=== PATIENT | male | born 1975 | race African-American/Black ===

== ENCOUNTER 2019-05-03 20:40 | Emergency (ER) | payer MEDICAID ==
[~2019-05-03] VITALS: Ht 182.9 cm; Wt 92.0 kg
[2019-05-03] MEDS ORDERED: SODIUM CHLORIDE 0.9% 1,000 ML IV ONE (23:57)
[2019-05-04 00:30] LABS: BASOPHILS % 0.9 % (0.0-2.0); EOSINOPHILS % 1.7 % (0.0-5.0); HEMOGLOBIN. 13.6 g/dL (14.0-18.0); LYMPHOCYTES % 37.5 % (20.0-50.0); MEAN CORPUSCULAR VOLUME 100.4 fL (80.0-94.0); MEAN PLATELET VOLUME 9.2 fl (7.4-10.4); MONOCYTES % 8.2 % (2.0-8.0); NEUTROPHILS % 51.7 % (40.0-76.0); PLATELET 127 x1000/uL (130-400); RED BLOOD CELL COUNT 3.88 mill/uL (4.7-6.1); RED CELL DISTRIBUTION WIDTH 14.1 % (11.6-14.6)
[2019-05-04 00:35] LABS: CHLORIDE 105 mEq/L (98-107)
[2019-05-04 00:40] LABS: ETHANOL BLOOD 275 mg/dL
[2019-05-04 01:32] LABS: CLARITY URINE CLEAR (CLEAR); COLOR URINE YELLOW (YELLOW); KETONES URINE NEGATIVE (NEGATIVE); LEUKOCYTE ESTERASE URINE NEGATIVE (NEGATIVE); NITRITE URINE NEGATIVE (NEGATIVE); OCCULT BLOOD URINE NEGATIVE (NEGATIVE); PROTEIN URINE NEGATIVE (NEGATIVE); SPECIFIC GRAVITY URINE 1.014 (1.005-1.030); UROBILINOGEN URINE 0.2 E.U./dL (0.2-1.0)
[2019-05-04 01:47] LABS: *COCAINE SCREEN URINE NEGATIVE (NEGATIVE); METHADONE URINE SCREEN NEGATIVE (NEGATIVE)
[2019-05-04 01:48] LABS: *AMPHETAMINES SCREEN URINE NEGATIVE (NEGATIVE); *BARBITURATES SCREEN URINE NEGATIVE (NEGATIVE); *BENZODIAZEPINES SCREEN URINE NEGATIVE (NEGATIVE); CANNABINOID URINE SCREEN NEGATIVE (NEGATIVE); OPIATES URINE SCREEN NEGATIVE (NEGATIVE); PHENCYCLIDINE URINE SCREEN NEGATIVE (NEGATIVE)
[2019-05-04 04:20] VITALS: BP 109/67
== END 2019-05-04 07:26 | disposition home or self-care (01) ==
LOC: ER 20:40
DX: F10.229 Alcohol dependence with intoxication, unspecified (principal); Y90.8 Blood alcohol level of 240 mg/100 ml or more
CPT/HCPCS: 36415; 80053; 80305; 80320; 81003; 83690; 85025; 99283; J7030; Z7610; G0480

== ENCOUNTER 2021-07-22 00:52 | Emergency (ER) | payer MEDICAID, OTHER | END 2021-07-22 02:50 | disposition left against medical advice (07) | LOC: ER 00:52 | DX: Z53.21 Procedure and treatment not carried out due to patient leaving prior to being seen by health care provider (principal) ==

== ENCOUNTER 2022-05-22 09:50 | Inpatient (IN) | payer MEDICAID, OTHER ==
[~2022-05-22] VITALS: Ht 182.9 cm; Wt 90.4 kg
[~2022-05-22 09:50] MED LIST: ACET-2708 MT; ALLO100T MT; ALLO100T PO; AMLO5TAB88 PO; AMOX-424 MT; ASPI-1160 PO; CLON0.1T14 PO; COLC0.6C3 MT; COR6 MT; COR6 PO; DILT240C91 MT; DILT240C95 PO; FURO-151 MT; FURO-152 MT; HYDR100T26 PO; IBUP-2028 MT; IBUP-2030 MT; LOSA25TA3 MT; LOSA25TA3 PO; LOSA50TA3 PO; METF500T PO; NAPR-681 PO; NICO-681 TD; POTA-204 PO; PRED10TA23 MT; THIA100T72 PO
[2022-05-22] MEDS ORDERED: NITROGLYCERIN 0.4MG TABLET SL SL NR (10:45)
[2022-05-22] MEDS ORDERED: AMLODIPINE 5MG TABLET PO NR (10:45)
[2022-05-22] MEDS ORDERED: LORAZEPAM 2MG/ML CPJ IV NR (10:45)
[2022-05-22 11:25] LABS: CLARITY URINE CLEAR (CLEAR); COLOR URINE YELLOW (YELLOW); KETONES URINE NEGATIVE (NEGATIVE); LEUKOCYTE ESTERASE URINE NEGATIVE (NEGATIVE); NITRITE URINE NEGATIVE (NEGATIVE); OCCULT BLOOD URINE NEGATIVE (NEGATIVE); PH URINE 5.5 (4.5-8.0); PROTEIN URINE NEGATIVE (NEGATIVE)
[2022-05-22] MEDS ORDERED: ASPIRIN 325MG EC TABLET PO NR (12:00)
[2022-05-22 12:53] LABS: *AMPHETAMINES SCREEN URINE NEGATIVE (NEGATIVE); *BARBITURATES SCREEN URINE NEGATIVE (NEGATIVE); *BENZODIAZEPINES SCREEN URINE PRESUMTIVE POSITIVE (NEGATIVE); *COCAINE SCREEN URINE NEGATIVE (NEGATIVE); CANNABINOID URINE SCREEN NEGATIVE (NEGATIVE); METHADONE URINE SCREEN NEGATIVE (NEGATIVE); OPIATES URINE SCREEN NEGATIVE (NEGATIVE); PHENCYCLIDINE URINE SCREEN NEGATIVE (NEGATIVE)
[2022-05-22] MEDS ORDERED: MORPHINE SULFATE 4 MG/ML CPJ (NOT FOR IM USE) IV NR (13:15)
[2022-05-22 16:46] LABS: CHLORIDE 101 mEq/L (98-107)
[2022-05-22 16:56] LABS: ETHANOL BLOOD 34 mg/dL
[2022-05-22] MEDS ORDERED: FUROSEMIDE 40MG/4ML VIAL IV SCH (17:15)
[2022-05-22] MEDS ORDERED: NITROGLYCERIN OINT 1GM/INCH UDPKT TD SCH (17:15)
[2022-05-22 18:39] LABS: BASOPHILS % 1.4 % (0.0-2.0); EOSINOPHILS % 0.5 % (0.0-5.0); HEMATOCRIT. 42.8 % (42.0-52.0); MEAN CORPUSCULAR HEMOGLOBIN 36.1 pg (28.0-32.0); MEAN CORPUSCULAR VOLUME 102.8 fL (80.0-94.0); MEAN PLATELET VOLUME 10.5 fl (7.4-10.4); MONOCYTES % 9.9 % (2.0-8.0); NEUTROPHILS % 72.2 % (40.0-76.0); PLATELET 163 x1000/uL (130-400); RED BLOOD CELL COUNT 4.17 mill/uL (4.7-6.1); RED CELL DISTRIBUTION WIDTH 15.7 % (11.6-14.6)
[2022-05-22] MEDS ORDERED: DIPHENHYDRAMINE 50MG CAPSULE PO ONE (20:15)
[2022-05-22 23:00] VITALS: BP 191/116
[2022-05-22 23:30] VITALS: BP 165/103
[2022-05-23] MEDS ORDERED: POTASSIUM CHLORIDE 20MEQ TABLET SR PO NR
[2022-05-23] MEDS: CLONIDINE 0.1MG TABLET PO PRN ×2 (00:22→08:45)
[2022-05-23 04:00] VITALS: BP 169/119
[2022-05-23 08:00] VITALS: BP 178/115
[2022-05-23] MEDS: LORAZEPAM 2MG/ML CPJ IV PRN ×3 (08:45→22:44)
[2022-05-23] MEDS ORDERED: ACETAMINOPHEN 325MG TABLET PO PRN (11:15)
[2022-05-23] MEDS ORDERED: TRAMADOL 50MG TABLET PO PRN (11:45)
[2022-05-23 12:00] VITALS: BP 176/114
[2022-05-23] MEDS ORDERED: NALOXONE HCL 0.4MG/ML VIAL IV PRN (12:00)
[2022-05-23] MEDS: DILTIAZEM HCL 60MG TABLET PO SCH ×2 (12:02→17:34)
[2022-05-23] MEDS ORDERED: FOLIC ACID 1 MG, THIAMINE HCL 100 MG, MVI, ADULT NO.1 10 ML in DEXTROSE 5% WATER 1,000 ML IV ONE ×4 (13:00)
[2022-05-23 16:00] VITALS: BP 154/95
[2022-05-23 17:29] LABS: T4 FREE 1.18 ng/dL (0.76-1.46)
[2022-05-23 20:00] VITALS: BP 143/77
[2022-05-23] MEDS: FENOFIBRATE NANOCRYSTALLIZED 48MG TABLET PO SCH (21:00)
[2022-05-23] MEDS: ATORVASTATIN CALCIUM 40MG TABLET PO SCH (21:00)
[2022-05-23] MEDS ORDERED: ATORVASTATIN CALCIUM 40MG TABLET PO SCH (21:00)
[2022-05-24] VITALS: BP 148/88
[2022-05-24] MEDS: LORAZEPAM 2MG/ML CPJ IV PRN ×4 (03:15→20:12)
[2022-05-24 04:00] VITALS: BP 150/87
[2022-05-24 06:42] LABS: BASOPHILS % 0.6 % (0.0-2.0); EOSINOPHILS % 1.6 % (0.0-5.0); HEMATOCRIT. 40.5 % (42.0-52.0); HEMOGLOBIN. 14.1 g/dL (14.0-18.0); LYMPHOCYTES % 28.9 % (20.0-50.0); MEAN CORPUSCULAR HEMOGLOBIN 35.2 pg (28.0-32.0); MEAN CORPUSCULAR VOLUME 101.3 fL (80.0-94.0); MEAN PLATELET VOLUME 9.6 fl (7.4-10.4); MONOCYTES % 6.8 % (2.0-8.0); NEUTROPHILS % 62.1 % (40.0-76.0); PLATELET 110 x1000/uL (130-400); RED CELL DISTRIBUTION WIDTH 14.8 % (11.6-14.6)
[2022-05-24] MEDS: PANTOPRAZOLE 40MG DR TABLET PO SCH ×2 (06:46→09:58)
[2022-05-24 07:11] LABS: CHLORIDE 98 mEq/L (98-107)
[2022-05-24 07:22] LABS: HDL CHOLESTEROL 17 mg/dL (40-59); LDL CHOLESTEROL 59 mg/dL (5-100)
[2022-05-24] MEDS ORDERED: POTASSIUM CHLORIDE 20MEQ TABLET SR PO NR (08:45)
[2022-05-24] MEDS ORDERED: IOHEXOL-300 100 ML BOTTLE ONE (09:16)
[2022-05-24 09:30] VITALS: BP_SYST 153; BP_SYST 160; BP_DIAS 100; BP_DIAS 88
[2022-05-24] MEDS: FISH OIL/OMEGA-3 FATTY ACIDS 1000MG CAPSULE PO SCH (09:57)
[2022-05-24] MEDS: FENOFIBRATE NANOCRYSTALLIZED 48MG TABLET PO SCH (09:57)
[2022-05-24] MEDS: DILTIAZEM HCL 60MG TABLET PO SCH (09:58)
[2022-05-24] MEDS: LOSARTAN POTASSIUM 100 MG TABLET PO SCH (11:37)
[2022-05-24] MEDS: ASPIRIN 81MG TABLET PO SCH (11:37)
[2022-05-24 12:00] VITALS: BP 147/89
[2022-05-24] MEDS ORDERED: AMLO5TAB88 PO (15:07)
[2022-05-24] MEDS ORDERED: LIP40 PO (15:07)
[2022-05-24] MEDS ORDERED: ASPI-1160 PO (15:07)
[2022-05-24] MEDS ORDERED: LOSA100T3 PO (15:07)
[2022-05-24] MEDS ORDERED: PANT40TA51 PO (15:07)
[2022-05-24 16:00] VITALS: BP 149/88
[2022-05-24 20:00] VITALS: BP 141/82
[2022-05-24] MEDS: ATORVASTATIN CALCIUM 40MG TABLET PO SCH (20:11)
[2022-05-24] MEDS: AMLODIPINE 5MG TABLET PO SCH (20:11)
[2022-05-25] VITALS: BP 138/66
[2022-05-25] MEDS: LORAZEPAM 2MG/ML CPJ IV PRN ×2 (01:16→06:02)
[2022-05-25 04:00] VITALS: BP 149/80
[2022-05-25 05:48] LABS: BASOPHILS % 0.6 % (0.0-2.0); EOSINOPHILS % 1.8 % (0.0-5.0); HEMATOCRIT. 39.9 % (42.0-52.0); HEMOGLOBIN. 13.8 g/dL (14.0-18.0); LYMPHOCYTES % 23.4 % (20.0-50.0); MEAN CORPUSCULAR HEMOGLOBIN 35.4 pg (28.0-32.0); MEAN CORPUSCULAR VOLUME 102.2 fL (80.0-94.0); MEAN PLATELET VOLUME 9.9 fl (7.4-10.4); MONOCYTES % 7.1 % (2.0-8.0); NEUTROPHILS % 67.1 % (40.0-76.0); PLATELET 107 x1000/uL (130-400); RED BLOOD CELL COUNT 3.91 mill/uL (4.7-6.1); RED CELL DISTRIBUTION WIDTH 14.6 % (11.6-14.6)
[2022-05-25 08:00] VITALS: BP 158/94
[2022-05-25 08:19] LABS: CHLORIDE 104 mEq/L (98-107)
[2022-05-25] MEDS: FISH OIL/OMEGA-3 FATTY ACIDS 1000MG CAPSULE PO SCH (08:49)
[2022-05-25] MEDS: ASPIRIN 81MG TABLET PO SCH (08:49)
[2022-05-25] MEDS: LOSARTAN POTASSIUM 100 MG TABLET PO SCH (08:49)
[2022-05-25] MEDS: AMLODIPINE 5MG TABLET PO SCH (08:49)
[2022-05-25] MEDS: FENOFIBRATE NANOCRYSTALLIZED 48MG TABLET PO SCH (08:49)
[2022-05-25] MEDS ORDERED: POTASSIUM CHLORIDE 20MEQ TABLET SR PO SCH (09:00)
[2022-05-25 12:00] VITALS: BP 131/75
[2022-05-25 13:47] VITALS: BP 131/75
[2022-05-25] MEDS ORDERED: CHLORDIAZEPOXIDE 25MG CAPSULE PO SCH (21:00)
== END 2022-05-25 15:29 | disposition home or self-care (01) | DRG 199 ==
LOC: ER 10:45 → 8WST 18:37 → MERGE 18:37 → EDBEDREQTM 18:44 → EDBEDREQ 18:44 → ENRESERV 22:00
PROVIDERS: ADMIT Internal Medicine; ATTEND Internal Medicine
DX: I16.1 Hypertensive emergency (principal); I50.43 Acute on chronic combined systolic (congestive) and diastolic (congestive) heart failure; E44.0 Moderate protein-calorie malnutrition; M94.0 Chondrocostal junction syndrome [Tietze]; I11.0 Hypertensive heart disease with heart failure; F33.1 Major depressive disorder, recurrent, moderate; E05.90 Thyrotoxicosis, unspecified without thyrotoxic crisis or storm; Z20.822 Contact with and (suspected) exposure to COVID-19; E11.65 Type 2 diabetes mellitus with hyperglycemia; E78.1 Pure hyperglyceridemia; E87.6 Hypokalemia; K80.20 Calculus of gallbladder without cholecystitis without obstruction; R74.01 Elevation of levels of liver transaminase levels; F41.9 Anxiety disorder, unspecified; F10.20 Alcohol dependence, uncomplicated; F17.210 Nicotine dependence, cigarettes, uncomplicated; Y90.1 Blood alcohol level of 20-39 mg/100 ml; Z59.00 Homelessness unspecified; Z91.14 Patient's other noncompliance with medication regimen; Z79.899 Other long term (current) drug therapy; Z68.27 Body mass index [BMI] 27.0-27.9, adult; Z56.0 Unemployment, unspecified; Z63.8 Other specified problems related to primary support group; Z82.49 Family history of ischemic heart disease and other diseases of the circulatory system
CPT/HCPCS: 36415; 71045; 74177; 76700; 80048; 80053; 80061; 80305; 80320; 81003; 83036; 83605; 83880; 84439; 84443; 84484; 85025; 87426; 93005; 93306; 93970; 99285; J1940; J2060; J2270; J3411; J3490; J7070; Q0163; Q9967; G0480

== ENCOUNTER 2022-06-26 17:39 | Emergency (ER) | payer MEDICAID, OTHER ==
[~2022-06-26] VITALS: Ht 177.8 cm; Wt 100.0 kg
[~2022-06-26 17:39] MED LIST changes: +LIP40 PO; +LOSA100T3 PO; +PANT40TA51 PO
[2022-06-26 18:46] LABS: BASOPHILS % 0.5 % (0.0-2.0); EOSINOPHILS % 1.5 % (0.0-5.0); HEMATOCRIT. 35.5 % (42.0-52.0); HEMOGLOBIN. 12.2 g/dL (14.0-18.0); LYMPHOCYTES % 22.8 % (20.0-50.0); MEAN CORPUSCULAR HEMOGLOBIN 35.5 pg (28.0-32.0); MEAN CORPUSCULAR VOLUME 103.6 fL (80.0-94.0); MEAN PLATELET VOLUME 7.8 fl (7.4-10.4); MONOCYTES % 5.9 % (2.0-8.0); NEUTROPHILS % 69.3 % (40.0-76.0); PLATELET 365 x1000/uL (130-400); RED BLOOD CELL COUNT 3.43 mill/uL (4.7-6.1); RED CELL DISTRIBUTION WIDTH 15.2 % (11.6-14.6)
[2022-06-26 18:50] LABS: CLARITY URINE CLEAR (CLEAR); COLOR URINE YELLOW (YELLOW); KETONES URINE NEGATIVE (NEGATIVE); LEUKOCYTE ESTERASE URINE NEGATIVE (NEGATIVE); NITRITE URINE NEGATIVE (NEGATIVE); OCCULT BLOOD URINE NEGATIVE (NEGATIVE); PH URINE 5.5 (4.5-8.0); PROTEIN URINE TRACE (NEGATIVE); SPECIFIC GRAVITY URINE 1.012 (1.005-1.030); UROBILINOGEN URINE 0.2 E.U./dL (0.2-1.0)
[2022-06-26 18:54] LABS: CHLORIDE 101 mEq/L (98-107)
[2022-06-26 19:02] LABS: *AMPHETAMINES SCREEN URINE NEGATIVE (NEGATIVE); *BARBITURATES SCREEN URINE NEGATIVE (NEGATIVE); *BENZODIAZEPINES SCREEN URINE PRESUMTIVE POSITIVE (NEGATIVE); *COCAINE SCREEN URINE NEGATIVE (NEGATIVE); CANNABINOID URINE SCREEN NEGATIVE (NEGATIVE); METHADONE URINE SCREEN NEGATIVE (NEGATIVE); OPIATES URINE SCREEN NEGATIVE (NEGATIVE); PHENCYCLIDINE URINE SCREEN NEGATIVE (NEGATIVE)
[2022-06-26 19:02] LABS: ETHANOL BLOOD 189 mg/dL
[2022-06-26 19:35] VITALS: BP 151/88
[2022-06-26] MEDS ORDERED: ACETAMINOPHEN 500MG TABLET PO ONE (20:15)
[2022-06-26 20:50] LABS: CHLORIDE 102 mEq/L (98-107)
[2022-06-26] MEDS ORDERED: IBUPROFEN 600MG TABLET PO ONE (21:00)
== END 2022-06-26 21:29 | disposition home or self-care (01) ==
LOC: ER 17:39
DX: K85.90 Acute pancreatitis without necrosis or infection, unspecified (principal); Y90.6 Blood alcohol level of 120-199 mg/100 ml; I11.0 Hypertensive heart disease with heart failure; I50.9 Heart failure, unspecified; F10.229 Alcohol dependence with intoxication, unspecified; Z79.899 Other long term (current) drug therapy
CPT/HCPCS: 36415; 80048; 80053; 80305; 80320; 81003; 85025; 99283; G0480

== ENCOUNTER 2022-07-09 20:08 | Emergency (ER) | payer MEDICAID, OTHER ==
[~2022-07-09] VITALS: Ht 193 cm; Wt 95.0 kg
[2022-07-09 21:24] LABS: BASOPHILS % 0.1 % (0.0-2.0); EOSINOPHILS % 1.3 % (0.0-5.0); HEMATOCRIT. 36.5 % (42.0-52.0); HEMOGLOBIN. 12.7 g/dL (14.0-18.0); LYMPHOCYTES % 30.1 % (20.0-50.0); MEAN CORPUSCULAR HEMOGLOBIN 35.3 pg (28.0-32.0); MEAN CORPUSCULAR VOLUME 101.5 fL (80.0-94.0); MEAN PLATELET VOLUME 8.5 fl (7.4-10.4); MONOCYTES % 7.9 % (2.0-8.0); NEUTROPHILS % 60.6 % (40.0-76.0); PLATELET 245 x1000/uL (130-400); RED BLOOD CELL COUNT 3.59 mill/uL (4.7-6.1); RED CELL DISTRIBUTION WIDTH 15.5 % (11.6-14.6)
[2022-07-09 21:41] LABS: CHLORIDE 107 mEq/L (98-107)
[2022-07-09] MEDS ORDERED: ONDANSETRON 4MG ODT PO ONE (23:00)
[2022-07-09] MEDS ORDERED: FAMOTIDINE 20MG TABLET PO ONE (23:00)
[2022-07-09 23:44] LABS: ETHANOL BLOOD 211 mg/dL
[2022-07-09] MEDS ORDERED: POTASSIUM CHLORIDE 20MEQ TABLET SR PO ONE (23:45)
[2022-07-10] MEDS ORDERED: FAMOTIDINE 20MG TABLET PO NR (01:30)
[2022-07-10] MEDS ORDERED: ONDANSETRON 4MG ODT PO NR (01:30)
[2022-07-10] MEDS ORDERED: POTASSIUM CHLORIDE 20MEQ TABLET SR PO NR (01:30)
[2022-07-10] MEDS ORDERED: ASPIRIN 81MG TABLET PO ONE (03:45)
[2022-07-10 05:56] LABS: *AMPHETAMINES SCREEN URINE NEGATIVE (NEGATIVE); *BARBITURATES SCREEN URINE NEGATIVE (NEGATIVE); *BENZODIAZEPINES SCREEN URINE PRESUMTIVE POSITIVE (NEGATIVE); *COCAINE SCREEN URINE NEGATIVE (NEGATIVE); CANNABINOID URINE SCREEN NEGATIVE (NEGATIVE); METHADONE URINE SCREEN NEGATIVE (NEGATIVE); OPIATES URINE SCREEN NEGATIVE (NEGATIVE); PHENCYCLIDINE URINE SCREEN NEGATIVE (NEGATIVE)
[2022-07-10 08:00] VITALS: BP 156/106
== END 2022-07-10 11:31 | disposition left against medical advice (07) ==
LOC: ER 20:08 → EDBEDREQ 07-10 05:09 → EDBEDREQTM 07-10 05:09 → ER 07-10 11:31 → CANBEDREQ 07-12 01:51
DX: I21.4 Non-ST elevation (NSTEMI) myocardial infarction (principal); I11.0 Hypertensive heart disease with heart failure; I50.9 Heart failure, unspecified; F10.229 Alcohol dependence with intoxication, unspecified; Y90.7 Blood alcohol level of 200-239 mg/100 ml; Z79.899 Other long term (current) drug therapy
CPT/HCPCS: 36415; 71045; 80053; 80305; 80320; 83690; 84484; 85025; 93005; 99285; Q0162; Z7610; G0480

== ENCOUNTER 2022-08-02 22:40 | Emergency (ER) | payer MEDICAID ==
[~2022-08-02] VITALS: Ht 185.4 cm; Wt 90.0 kg
[2022-08-02] MEDS ORDERED: NITROGLYCERIN 0.4MG TABLET SL SL PRN (23:15)
[2022-08-02] MEDS ORDERED: ASPIRIN 81MG TABLET PO ONE (23:15)
[2022-08-03 00:02] LABS: BASOPHILS % 3.8 % (0.0-2.0); EOSINOPHILS % 5.4 % (0.0-5.0); HEMATOCRIT. 39.7 % (42.0-52.0); HEMOGLOBIN. 13.6 g/dL (14.0-18.0); LYMPHOCYTES % 33.1 % (20.0-50.0); MEAN CORPUSCULAR HEMOGLOBIN 35.6 pg (28.0-32.0); MEAN CORPUSCULAR VOLUME 103.5 fL (80.0-94.0); MEAN PLATELET VOLUME 8.2 fl (7.4-10.4); MONOCYTES % 14.7 % (2.0-8.0); PLATELET 310 x1000/uL (130-400); RED BLOOD CELL COUNT 3.83 mill/uL (4.7-6.1); RED CELL DISTRIBUTION WIDTH 17.1 % (11.6-14.6)
[2022-08-03 00:04] LABS: CHLORIDE 103 mEq/L (98-107)
[2022-08-03 00:19] LABS: ETHANOL BLOOD 221 mg/dL
[2022-08-03 01:27] LABS: PARTIAL THROMBOPLASTIN TIME 34.2 sec (23.4-31.0); PROTHROMBIN TIME 10.4 sec (9.6-11.0)
[2022-08-03] MEDS: ASPIRIN 81MG TABLET PO NR ×2 (01:56→02:04)
[2022-08-03] MEDS ORDERED: THIAMINE HCL 100 MG, FOLIC ACID 1 MG, MVI, ADULT NO.1 10 ML in DEXT 5%/0.9% NACL 1,000 ML IV NR ×4 (02:30)
[2022-08-03] MEDS ORDERED: DOCUSATE SODIUM 100MG CAPSULE PO PRN (02:30)
[2022-08-03] MEDS ORDERED: LORAZEPAM 2MG/ML CPJ IV PRN (02:30)
[2022-08-03] MEDS ORDERED: IPRATROPIUM/ALBUTEROL 0.5-3(2.5)MG/3ML NEB HHN PRN ×2 (02:30)
[2022-08-03] MEDS ORDERED: CLONIDINE 0.1MG TABLET PO PRN (02:30)
[2022-08-03] MEDS ORDERED: ONDANSETRON HCL 4MG/2ML INJ IV PRN (02:30)
[2022-08-03] MEDS ORDERED: ACETAMINOPHEN 325MG TABLET PO PRN ×2 (02:30)
[2022-08-03] MEDS ORDERED: NITROGLYCERIN 0.4MG TABLET SL SL PRN (02:45)
[2022-08-03] MEDS ORDERED: FAMOTIDINE 20MG TABLET PO SCH (03:00)
[2022-08-03 03:57] LABS: PHOSPHORUS 3.7 mg/dL (2.5-4.9)
[2022-08-03] MEDS ORDERED: IOHEXOL-350 100 ML BOTTLE ONE (04:14)
[2022-08-03] MEDS ORDERED: ENOXAPARIN 40MG/0.4ML SYR SUBCUT SCH (09:00)
[2022-08-03] MEDS ORDERED: AMLODIPINE 10MG TABLET PO SCH (09:00)
[2022-08-03 12:58] VITALS: BP 153/95
[2022-08-03] MEDS ORDERED: APIXABAN 5 MG TABLET PO SCH (17:00)
[2022-08-04] MEDS ORDERED: THIAMINE HCL 100MG TABLET PO SCH (09:00)
[2022-08-06] MEDS ORDERED: LISI20TA31 MT (10:39)
[2022-08-06] MEDS ORDERED: AMLO10TA80 PO (10:39)
== END 2022-08-03 13:34 | disposition left against medical advice (07) ==
LOC: ER 23:13 → EDBEDREQ 08-03 02:03 → EDBEDREQTM 08-03 02:03 → ER 08-03 13:34 → CANBEDREQ 08-05 07:24
DX: R07.89 Other chest pain (principal); F10.229 Alcohol dependence with intoxication, unspecified; F41.9 Anxiety disorder, unspecified; N17.9 Acute kidney failure, unspecified; D61.818 Other pancytopenia; I11.0 Hypertensive heart disease with heart failure; I50.9 Heart failure, unspecified; F19.10 Other psychoactive substance abuse, uncomplicated; Y90.7 Blood alcohol level of 200-239 mg/100 ml; E78.00 Pure hypercholesterolemia, unspecified; Z59.00 Homelessness unspecified
CPT/HCPCS: 36415; 71045; 71275; 80053; 80320; 83036; 83690; 83735; 83880; 84100; 84484; 85025; 85379; 85610; 85730; 87040; 93005; 93970; 96365; 96366; 96372; 96375; 99285; J1650; J2060; J3411; J3490; J7042; Q9967; Z7610; G0480

== ENCOUNTER 2022-08-18 09:03 | Emergency (ER) | payer MEDICAID ==
[~2022-08-18] VITALS: Ht 180.3 cm; Wt 114.0 kg
[~2022-08-18 09:03] MED LIST changes: +AMLO10TA80 PO; +LISI20TA31 MT
[2022-08-18] MEDS ORDERED: KETOROLAC 60MG/2ML VIAL IM STA (11:51)
[2022-08-18] MEDS ORDERED: COLCHICINE 0.6MG TABLET PO ONE (12:00)
[2022-08-18] MEDS ORDERED: PREDNISONE 20MG TABLET PO ONE (12:00)
[2022-08-18] MEDS ORDERED: P50 MT (13:53)
[2022-08-18 14:11] VITALS: BP 125/75
== END 2022-08-18 14:11 | disposition home or self-care (01) ==
LOC: ER 09:03
DX: M10.9 Gout, unspecified (principal); I11.0 Hypertensive heart disease with heart failure; I50.9 Heart failure, unspecified; Z79.899 Other long term (current) drug therapy; Z98.890 Other specified postprocedural states
CPT/HCPCS: 96372; 99283; J1885; J7512

== ENCOUNTER 2022-08-29 19:23 | Emergency (ER) | payer MEDICAID ==
[~2022-08-29] VITALS: Ht 182.9 cm; Wt 102.0 kg
[~2022-08-29 19:23] MED LIST changes: -LOSA100T3 PO; +LOSA100T4 PO; +P50 MT
[2022-08-29] MEDS ORDERED: IBUPROFEN 600MG TABLET PO STA (20:01)
[2022-08-29 21:08] LABS: EOSINOPHILS % 2.4 % (0.0-5.0); HEMATOCRIT. 37.2 % (42.0-52.0); HEMOGLOBIN. 12.6 g/dL (14.0-18.0); LYMPHOCYTES % 37.3 % (20.0-50.0); MEAN CORPUSCULAR HEMOGLOBIN 34.5 pg (28.0-32.0); MEAN CORPUSCULAR VOLUME 101.5 fL (80.0-94.0); MEAN PLATELET VOLUME 7.7 fl (7.4-10.4); MONOCYTES % 5.7 % (2.0-8.0); NEUTROPHILS % 53.6 % (40.0-76.0); PLATELET 286 x1000/uL (130-400); RED BLOOD CELL COUNT 3.66 mill/uL (4.7-6.1); RED CELL DISTRIBUTION WIDTH 16.5 % (11.6-14.6)
[2022-08-29 21:20] LABS: CHLORIDE 107 mEq/L (98-107)
[2022-08-29 21:30] LABS: ETHANOL BLOOD 254 mg/dL
[2022-08-30] MEDS ORDERED: DICYCLOMINE 10 MG/5 ML ORAL SYR PO STA (05:27)
[2022-08-30] MEDS ORDERED: MAGNESIUM/ALUMINUM HYDROXIDE/SIMETHICONE 30ML UDC PO STA (05:27)
[2022-08-30] MEDS ORDERED: FAMOTIDINE 20MG TABLET PO ONE (05:30)
[2022-08-30 06:00] VITALS: BP 135/71
== END 2022-08-30 06:01 | disposition home or self-care (01) ==
LOC: ER 19:34
DX: F10.129 Alcohol abuse with intoxication, unspecified (principal); I11.0 Hypertensive heart disease with heart failure; I50.9 Heart failure, unspecified; F17.200 Nicotine dependence, unspecified, uncomplicated; Z98.890 Other specified postprocedural states; Z79.899 Other long term (current) drug therapy; Y90.8 Blood alcohol level of 240 mg/100 ml or more
CPT/HCPCS: 36415; 71045; 80053; 80320; 83880; 84484; 85025; 99284; G0480

== ENCOUNTER 2022-11-02 07:33 | Emergency (ER) | payer OTHER ==
[~2022-11-02] VITALS: Ht 185.4 cm; Wt 93.0 kg
[~2022-11-02 07:33] MED LIST changes: -ACET-2708 MT; -ALLO100T PO; +AMI2 MT; -AMLO10TA80 PO; -AMLO5TAB88 PO; -AMOX-424 MT; +CEPH500C2 MT; -CLON0.1T14 PO; -COR6 MT; -COR6 PO; -DILT240C91 MT; -DILT240C95 PO; -FURO-151 MT; -FURO-152 MT; -HYDR100T26 PO; -IBUP-2028 MT; +IBUP-2029 MT; -IBUP-2030 MT; -LISI20TA31 MT; -LOSA100T4 PO; -LOSA25TA3 MT; -LOSA25TA3 PO; -LOSA50TA3 PO; -METF500T PO; +METO100T16 PO; -NAPR-681 PO; -NICO-681 TD; -P50 MT; -PRED10TA23 MT
[2022-11-02 07:42] VITALS: BP 143/83
[2022-12-03] MEDS ORDERED: LIPA1CAP28 PO (13:48)
[2022-12-03] MEDS ORDERED: HYDR100T26 PO (13:48)
[2022-12-03] MEDS ORDERED: AMLO10TA80 PO (13:48)
[2022-12-08] MEDS ORDERED: ALLO100T MT (13:31)
[2022-12-08] MEDS ORDERED: COLC0.6C3 MT (13:31)
== END 2022-11-02 11:49 | disposition home or self-care (01) ==
LOC: ER 07:33
DX: Z76.89 Persons encountering health services in other specified circumstances (principal); I48.91 Unspecified atrial fibrillation; I11.0 Hypertensive heart disease with heart failure; I50.9 Heart failure, unspecified; Z59.00 Homelessness unspecified
CPT/HCPCS: 99283

== ENCOUNTER 2022-12-09 21:02 | Emergency (ER) | payer MEDICAID ==
[~2022-12-09] VITALS: Ht 185.4 cm; Wt 95.0 kg
[~2022-12-09 21:02] MED LIST changes: +AMLO10TA80 PO; +HYDR100T26 PO; +LIPA1CAP28 PO
[2022-12-09 21:26] VITALS: O2SAT 99
[2022-12-09 23:02] LABS: HEMATOCRIT. 39.1 % (42.0-52.0); HEMOGLOBIN. 13.3 g/dL (14.0-18.0); MEAN CORPUSCULAR VOLUME 99.8 fL (80.0-94.0); MEAN PLATELET VOLUME 8.8 fl (7.4-10.4); PLATELET 308 x1000/uL (130-400); RED BLOOD CELL COUNT 3.92 mill/uL (4.7-6.1); RED CELL DISTRIBUTION WIDTH 15.8 % (11.6-14.6)
[2022-12-09 23:06] LABS: CHLORIDE 99 mEq/L (98-107)
[2022-12-09 23:28] LABS: PLATELET ESTIMATE NORMAL
[2022-12-09 23:50] LABS: CLARITY URINE CLEAR (CLEAR); COLOR URINE YELLOW (YELLOW); KETONES URINE NEGATIVE (NEGATIVE); LEUKOCYTE ESTERASE URINE NEGATIVE (NEGATIVE); NITRITE URINE NEGATIVE (NEGATIVE); OCCULT BLOOD URINE NEGATIVE (NEGATIVE); PROTEIN URINE TRACE (NEGATIVE); SPECIFIC GRAVITY URINE 1.022 (1.005-1.030)
[2022-12-10] MEDS ORDERED: DICYCLOMINE 10 MG/5 ML ORAL SYR PO STA (00:14)
[2022-12-10] MEDS ORDERED: MAGNESIUM/ALUMINUM HYDROXIDE/SIMETHICONE 30ML UDC PO STA (00:14)
[2022-12-10 00:21] VITALS: TEMP 99.1
[2022-12-10 01:00] LABS: ETHANOL BLOOD < 10 mg/dL (-10)
[2022-12-10 01:33] LABS: *AMPHETAMINES SCREEN URINE NEGATIVE (NEGATIVE); *BARBITURATES SCREEN URINE NEGATIVE (NEGATIVE); *BENZODIAZEPINES SCREEN URINE NEGATIVE (NEGATIVE); *COCAINE SCREEN URINE NEGATIVE (NEGATIVE); CANNABINOID URINE SCREEN NEGATIVE (NEGATIVE); METHADONE URINE SCREEN NEGATIVE (NEGATIVE); OPIATES URINE SCREEN PRESUMTIVE POSITIVE (NEGATIVE); PHENCYCLIDINE URINE SCREEN NEGATIVE (NEGATIVE)
[2022-12-10 02:09] VITALS: BP 129/76; PULSE 98; RESP 18
[2022-12-10] MEDS ORDERED: LORAZEPAM 0.5MG TABLET PO ONE (02:15)
== END 2022-12-10 02:19 | disposition home or self-care (01) ==
LOC: ER 21:39
DX: K86.9 Disease of pancreas, unspecified (principal); I50.9 Heart failure, unspecified; Z79.82 Long term (current) use of aspirin; Z79.899 Other long term (current) drug therapy
CPT/HCPCS: 80053; 80305; 81003; 83690; 85025; 36415; 93005; 99284; 80320; 84484; Z7610; G0480

== ENCOUNTER 2022-12-20 19:01 | Emergency (ER) | payer MEDICAID, OTHER ==
[~2022-12-20] VITALS: Ht 185.4 cm; Wt 100.0 kg
[2022-12-20 19:08] VITALS: TEMP 98.6; O2SAT 97
[2022-12-20 19:55] LABS: BASOPHILS % 0.9 % (0.0-2.0); EOSINOPHILS % 0.6 % (0.0-5.0); HEMATOCRIT. 33.7 % (42.0-52.0); HEMOGLOBIN. 11.8 g/dL (14.0-18.0); LYMPHOCYTES % 28.8 % (20.0-50.0); MEAN CORPUSCULAR HEMOGLOBIN 34.8 pg (28.0-32.0); MEAN CORPUSCULAR VOLUME 99.6 fL (80.0-94.0); MEAN PLATELET VOLUME 7.9 fl (7.4-10.4); MONOCYTES % 7.5 % (2.0-8.0); NEUTROPHILS % 62.2 % (40.0-76.0); PLATELET 269 x1000/uL (130-400); RED BLOOD CELL COUNT 3.38 mill/uL (4.7-6.1); RED CELL DISTRIBUTION WIDTH 16.1 % (11.6-14.6)
[2022-12-20] MEDS ORDERED: ONDANSETRON HCL 4MG/2ML INJ IV ONE (20:00)
[2022-12-20] MEDS ORDERED: SODIUM CHLORIDE 0.9% 1,000 ML IV ONE (20:00)
[2022-12-20] MEDS ORDERED: FAMOTIDINE 20MG/2ML VIAL IV ONE (20:00)
[2022-12-20 20:03] LABS: CHLORIDE 108 mEq/L (98-107)
[2022-12-20] MEDS ORDERED: MORPHINE SULFATE 2 MG/ML CPJ (NOT FOR IM USE) IV ONE (20:15)
[2022-12-20 20:19] LABS: ETHANOL BLOOD 337 mg/dL (-10)
[2022-12-20] MEDS ORDERED: MORPHINE SULFATE 2 MG/ML CPJ (NOT FOR IM USE) IV NR (20:30)
[2022-12-20] MEDS ORDERED: FAMOTIDINE 20MG/2ML VIAL IV NR (20:30)
[2022-12-20] MEDS ORDERED: ONDANSETRON HCL 4MG/2ML INJ IV NR (20:30)
[2022-12-20] MEDS ORDERED: MAGNESIUM OXIDE 400MG TABLET PO SCH (20:30)
[2022-12-20] MEDS ORDERED: POTASSIUM CHLORIDE 20MEQ TABLET SR PO ONE (20:30)
[2022-12-20] MEDS ORDERED: KCL 20MEQ/100ML PREMIX 100 ML IV ONE (20:30)
[2022-12-21 03:16] VITALS: BP 153/102; PULSE 100; RESP 16
[2022-12-21] MEDS ORDERED: HYDR100T26 PO (13:02)
[2022-12-21] MEDS ORDERED: NIFE-32 MT (13:02)
[2022-12-23] MEDS ORDERED: LOSA100T33 PO (13:24)
[2022-12-23] MEDS ORDERED: METO100T16 MT (13:24)
== END 2022-12-21 03:20 | disposition home or self-care (01) ==
LOC: ER 19:01
DX: F10.129 Alcohol abuse with intoxication, unspecified (principal); Y90.8 Blood alcohol level of 240 mg/100 ml or more; F15.10 Other stimulant abuse, uncomplicated; I50.9 Heart failure, unspecified
CPT/HCPCS: 80053; 80320; 83690; 85025; 84484; 36415; 93005; 96361; 96374; 96375; 99284; J3490; J2405; J3480; J2270; J7030; G0480

== ENCOUNTER 2022-12-25 15:51 | Emergency (ER) | payer MEDICAID, OTHER ==
[~2022-12-25] VITALS: Ht 188 cm; Wt 100.0 kg
[~2022-12-25 15:51] MED LIST changes: -AMLO10TA80 PO; -CEPH500C2 MT; +LOSA100T33 PO; +METO100T16 MT; +NIFE-32 MT
[2022-12-25 15:54] VITALS: BP 91/57; PULSE 81; RESP 16; TEMP 97.9; O2SAT 95
[2022-12-25] MEDS ORDERED: MAGNESIUM/ALUMINUM HYDROXIDE/SIMETHICONE 30ML UDC PO STA (17:08)
[2022-12-25] MEDS ORDERED: FAMOTIDINE 20MG TABLET PO ONE (17:15)
[2022-12-25] MEDS ORDERED: ASPIRIN 81MG TABLET PO ONE (17:15)
[2022-12-25 17:38] LABS: BASOPHILS % 0.7 % (0.0-2.0); EOSINOPHILS % 0.6 % (0.0-5.0); HEMATOCRIT. 37.7 % (42.0-52.0); LYMPHOCYTES % 13.2 % (20.0-50.0); MEAN CORPUSCULAR HEMOGLOBIN 34.3 pg (28.0-32.0); MEAN PLATELET VOLUME 8.5 fl (7.4-10.4); MONOCYTES % 11.1 % (2.0-8.0); NEUTROPHILS % 74.4 % (40.0-76.0); PLATELET 211 x1000/uL (130-400); RED BLOOD CELL COUNT 3.77 mill/uL (4.7-6.1); RED CELL DISTRIBUTION WIDTH 17.3 % (11.6-14.6)
[2022-12-25 17:53] LABS: CHLORIDE 107 mEq/L (98-107)
[2022-12-29] MEDS ORDERED: FOLI-43 MT (07:48)
== END 2022-12-25 18:27 | disposition left against medical advice (07) ==
LOC: ER 15:51
DX: R07.89 Other chest pain (principal); R11.2 Nausea with vomiting, unspecified; I11.0 Hypertensive heart disease with heart failure; I50.9 Heart failure, unspecified
CPT/HCPCS: 80053; 83880; 83690; 85025; 84484; 36415; 71045; 93005; 99285; Z7610

== ENCOUNTER 2023-01-01 20:25 | Inpatient (IN) | payer MEDICAID, OTHER ==
[~2023-01-01] VITALS: Ht 180.3 cm; Wt 105.0 kg
[~2023-01-01 20:25] MED LIST changes: -COLC0.6C3 MT; +FOLI-43 MT
[2023-01-01 20:27] VITALS: BP 169/71; PULSE 122; RESP 20; TEMP 98.1; O2SAT 99
[2023-01-01] MEDS ORDERED: SODIUM CHLORIDE 0.9% 1,000 ML IV ONE (21:15)
[2023-01-01 21:37] LABS: BASOPHILS % 0.6 % (0.0-2.0); EOSINOPHILS % 0.5 % (0.0-5.0); HEMOGLOBIN. 12.1 g/dL (14.0-18.0); MEAN CORPUSCULAR HEMOGLOBIN 33.8 pg (28.0-32.0); MEAN CORPUSCULAR VOLUME 100.7 fL (80.0-94.0); MEAN PLATELET VOLUME 8.5 fl (7.4-10.4); MONOCYTES % 12.3 % (2.0-8.0); NEUTROPHILS % 68.6 % (40.0-76.0); PLATELET 291 x1000/uL (130-400); RED BLOOD CELL COUNT 3.58 mill/uL (4.7-6.1); RED CELL DISTRIBUTION WIDTH 17.7 % (11.6-14.6)
[2023-01-02] MEDS ORDERED: DEXT 5%/0.45% NACL 500ML 1,000 ML IV ONE (00:30)
[2023-01-02] MEDS ORDERED: IPRATROPIUM/ALBUTEROL 0.5-3(2.5)MG/3ML NEB HHN PRN (07:30)
[2023-01-02] MEDS ORDERED: LORAZEPAM 0.5MG TABLET PO PRN (07:30)
[2023-01-02] MEDS ORDERED: ACETAMINOPHEN 325MG TABLET PO PRN ×2 (07:30)
[2023-01-02] MEDS ORDERED: ONDANSETRON HCL 4MG/2ML INJ IV PRN (07:30)
[2023-01-02] MEDS ORDERED: CLONIDINE 0.1MG TABLET PO PRN (07:30)
[2023-01-02] MEDS ORDERED: HYDROCODONE/ACETAMINOPHEN 5/325MG TABLET PO PRN (07:30)
[2023-01-02] MEDS ORDERED: DOCUSATE SODIUM 100MG CAPSULE PO PRN (09:00)
== END 2023-01-02 09:53 | disposition home or self-care (01) | DRG 52 ==
LOC: ER 20:25 → MICUSO 01-02 00:51
PROVIDERS: ADMIT Internal Medicine; ATTEND Internal Medicine
DX: G92.8 Other toxic encephalopathy (principal); N17.9 Acute kidney failure, unspecified; I50.9 Heart failure, unspecified; I11.0 Hypertensive heart disease with heart failure; I48.0 Paroxysmal atrial fibrillation; D53.9 Nutritional anemia, unspecified; F10.10 Alcohol abuse, uncomplicated; E78.5 Hyperlipidemia, unspecified; Z59.00 Homelessness unspecified
CPT/HCPCS: 36415; 80048; 80320; 85025; 93005; 99285; J7030; G0480

== ENCOUNTER 2023-09-12 14:35 | Emergency (ER) | payer MEDICAID, OTHER ==
[~2023-09-12] VITALS: Ht 188 cm; Wt 100.0 kg
[~2023-09-12 14:35] MED LIST changes: -AMI2 MT; +AMI2 PO; +AMLO10TA80 MT; +AMLO5TAB88 MT; -ASPI-1160 PO; +COLC0.6C3 PO; +HYDR-4001 PO; -HYDR100T26 PO; -IBUP-2029 MT; -LIP40 PO; +LORA-250 PO; -METO100T16 MT; -NIFE-32 MT; +PANT40TA51 MT; -PANT40TA51 PO; -POTA-204 PO; -THIA100T72 PO
[2023-09-12 14:38] VITALS: TEMP 98; O2SAT 100
[2023-09-12] MEDS: NALOXONE HCL 0.4MG/ML 1ML VIAL IV ONE (15:51)
[2023-09-12 15:57] LABS: DIFFERENTIAL COMMENT 0; EOSINOPHILS % 1.3 % (0.0-5.0); HEMATOCRIT. 34.8 % (42.0-52.0); HEMOGLOBIN. 11.8 g/dL (14.0-18.0); LYMPHOCYTES % 26.4 % (20.0-50.0); MEAN CORPUSCULAR HEMOGLOBIN 35.7 pg (28.0-32.0); MEAN CORPUSCULAR HGB CONC 33.9 g/dL (31.0-37.0); MEAN CORPUSCULAR VOLUME 105.4 fL (80.0-94.0); MEAN PLATELET VOLUME 8.4 fl (7.4-10.4); MONOCYTES % 14.5 % (2.0-8.0); NEUTROPHILS % 56.8 % (40.0-76.0); PLATELET 308 x1000/uL (130-400); RED CELL DISTRIBUTION WIDTH 14.9 % (11.6-14.6); WHITE BLOOD COUNT 4.9 x1000/uL (4.5-11.0)
[2023-09-12 16:06] LABS: INR 0.9
[2023-09-12 16:17] LABS: ALANINE AMINOTRANSFERASE 11 IU/L (10-49); ALBUMIN 4.2 g/dL (3.2-4.8); ASPARTATE AMINOTRANSFERASE 27 IU/L (<34); BILIRUBIN TOTAL 0.2 mg/dL (0.1-1.0); CALCIUM 8.3 mg/dL (8.7-10.4); CARBON DIOXIDE 18 mEq/L (21-32); CHLORIDE 107 mEq/L (98-107); CREATININE 2.9 mg/dL (0.6-1.3); ETHANOL BLOOD 293 mg/dL (<10); GLUCOSE 91 mg/dL (70-105); POTASSIUM 3.6 mEq/L (3.5-5.1); SODIUM 139 mEq/L (136-145); UREA NITROGEN BLOOD 31 mg/dL (9-23)
[2023-09-12] MEDS: PANTOPRAZOLE 40MG DR TABLET PO NR (18:21)
[2023-09-12] MEDS: MAGNESIUM/ALUMINUM HYDROXIDE/SIMETHICONE 30ML UDC PO NR (18:21)
[2023-09-12] MEDS: SODIUM CHLORIDE 0.9% 1,000 ML IV ONE (18:21)
[2023-09-13 00:28] VITALS: BP 138/86; PULSE 92; RESP 17
== END 2023-09-13 01:04 | disposition home or self-care (01) ==
LOC: ER 14:35
DX: F10.129 Alcohol abuse with intoxication, unspecified (principal); N17.9 Acute kidney failure, unspecified; I11.0 Hypertensive heart disease with heart failure; I50.9 Heart failure, unspecified; F12.90 Cannabis use, unspecified, uncomplicated; F14.90 Cocaine use, unspecified, uncomplicated; F15.90 Other stimulant use, unspecified, uncomplicated; Y90.9 Presence of alcohol in blood, level not specified
CPT/HCPCS: 80053; 80320; 85025; 85610; 36415; 70450; 96361; 96374; 99285; J2310; J7030; G0480

== ENCOUNTER 2023-09-17 17:42 | Emergency (ER) | payer MEDICAID, OTHER ==
[~2023-09-17] VITALS: Ht 182.9 cm; Wt 90.0 kg
[2023-09-17 18:23] VITALS: BP 136/114; PULSE 130; RESP 20; TEMP 98.5; O2SAT 100
[2023-09-17 19:09] LABS: BASOPHILS % 0.8 % (0.0-2.0); DIFFERENTIAL COMMENT 0; HEMATOCRIT. 36.7 % (42.0-52.0); LYMPHOCYTES % 16.5 % (20.0-50.0); MEAN CORPUSCULAR HEMOGLOBIN 35.9 pg (28.0-32.0); MEAN CORPUSCULAR HGB CONC 35.4 g/dL (31.0-37.0); MEAN CORPUSCULAR VOLUME 101.2 fL (80.0-94.0); MEAN PLATELET VOLUME 8.5 fl (7.4-10.4); MONOCYTES % 7.6 % (2.0-8.0); NEUTROPHILS % 74.1 % (40.0-76.0); PLATELET 285 x1000/uL (130-400); RED BLOOD CELL COUNT 3.63 mill/uL (4.7-6.1); RED CELL DISTRIBUTION WIDTH 14.1 % (11.6-14.6); WHITE BLOOD COUNT 6.8 x1000/uL (4.5-11.0)
[2023-09-17 19:21] LABS: ALANINE AMINOTRANSFERASE 17 IU/L (10-49); ALBUMIN 4.9 g/dL (3.2-4.8); ASPARTATE AMINOTRANSFERASE 32 IU/L (<34); BILIRUBIN TOTAL 0.3 mg/dL (0.1-1.0); CARBON DIOXIDE 24 mEq/L (21-32); CHLORIDE 98 mEq/L (98-107); ETHANOL BLOOD 231 mg/dL (<10); GLUCOSE 107 mg/dL (70-105); POTASSIUM 3.1 mEq/L (3.5-5.1); PROTEIN TOTAL 8.1 g/dL (6.0-8.3); SODIUM 137 mEq/L (136-145); TROPONIN I HIGH SENSITIVITY 5 ng/L (3.0-53); UREA NITROGEN BLOOD 20 mg/dL (9-23)
[2023-09-17 22:13] LABS: TROPONIN I HIGH SENSITIVITY 6 ng/L (3.0-53)
[2023-09-17] MEDS ORDERED: ESOM40CA MT (22:52)
== END 2023-09-17 23:17 | disposition home or self-care (01) ==
LOC: ER 17:42
DX: R07.89 Other chest pain (principal); F10.129 Alcohol abuse with intoxication, unspecified; I11.0 Hypertensive heart disease with heart failure; I50.9 Heart failure, unspecified; F14.10 Cocaine abuse, uncomplicated; F12.10 Cannabis abuse, uncomplicated; F15.10 Other stimulant abuse, uncomplicated; Z79.899 Other long term (current) drug therapy; Y90.7 Blood alcohol level of 200-239 mg/100 ml
CPT/HCPCS: 36415; 71045; 80053; 80320; 83880; 84484; 85025; 93005; 99285; G0480

== ENCOUNTER 2023-11-08 07:34 | Emergency (ER) | payer MEDICAID ==
[~2023-11-08] VITALS: Ht 185.4 cm; Wt 95.3 kg
[~2023-11-08 07:34] MED LIST changes: +ESOM40CA MT
[2023-11-08 07:41] VITALS: O2SAT 99
[2023-11-08] MEDS ORDERED: IBUP-2028 PO (08:00)
[2023-11-08] MEDS ORDERED: COLC0.6C3 PO (08:00)
[2023-11-08] MEDS ORDERED: T3 PO (08:00)
[2023-11-08] MEDS: COLCHICINE 0.6MG TABLET PO ONE (08:39)
[2023-11-08] MEDS: IBUPROFEN 800MG TABLET PO SCH (08:40)
[2023-11-08] MEDS: IBUPROFEN 800MG TABLET PO ONE (08:40)
[2023-11-08 08:42] VITALS: BP 168/99; PULSE 85; RESP 16; TEMP 98.2
== END 2023-11-08 08:43 | disposition home or self-care (01) ==
LOC: ER 07:34
DX: M10.9 Gout, unspecified (principal); I11.0 Hypertensive heart disease with heart failure; F14.90 Cocaine use, unspecified, uncomplicated; F12.90 Cannabis use, unspecified, uncomplicated; F15.90 Other stimulant use, unspecified, uncomplicated; F10.20 Alcohol dependence, uncomplicated; Y90.9 Presence of alcohol in blood, level not specified
CPT/HCPCS: 99283

== ENCOUNTER 2023-12-23 10:21 | Emergency (ER) | payer MEDICAID ==
[~2023-12-23] VITALS: Ht 185.4 cm; Wt 95.3 kg
[~2023-12-23 10:21] MED LIST changes: +IBUP-2028 PO; +T3 PO
[2023-12-23 10:29] VITALS: O2SAT 98
[2023-12-23] MEDS ORDERED: DEXAMETHASONE 4MG/ML 1ML VIAL IM ONE (11:00)
[2023-12-23] MEDS: DEXAMETHASONE 10 MG/ML VIAL IM NR (11:11)
[2023-12-23] MEDS: KETOROLAC 30MG/ML VIAL IM ONE (11:11)
[2023-12-23] MEDS ORDERED: COLC0.6C3 MT (11:21)
[2023-12-23] MEDS ORDERED: ALLO100T MT (11:21)
[2023-12-23] MEDS ORDERED: IBUP-2030 MT (11:21)
[2023-12-23] MEDS: COLCHICINE 0.6MG TABLET PO ONE (11:29)
[2023-12-23 11:52] VITALS: BP 162/98; PULSE 88; RESP 18; TEMP 98
== END 2023-12-23 11:54 | disposition home or self-care (01) ==
LOC: ER 10:21
DX: M10.9 Gout, unspecified (principal); I11.0 Hypertensive heart disease with heart failure; I50.9 Heart failure, unspecified; F14.10 Cocaine abuse, uncomplicated; F12.10 Cannabis abuse, uncomplicated; F15.10 Other stimulant abuse, uncomplicated; Z79.899 Other long term (current) drug therapy
CPT/HCPCS: 99284; 73110; 96372; J1100; J1885

== ENCOUNTER 2024-02-09 11:38 | Emergency (ER) | payer MEDICAID ==
[~2024-02-09] VITALS: Ht 182.9 cm; Wt 95.0 kg
[~2024-02-09 11:38] MED LIST changes: +COLC0.6C3 MT; +IBUP-2030 MT
[2024-02-09 11:48] VITALS: O2SAT 100
[2024-02-09 12:01] VITALS: TEMP 98.1; O2SAT 98
[2024-02-09] MEDS ORDERED: ALLO100T MT (14:51)
[2024-02-09] MEDS ORDERED: IBUP-2029 MT (14:51)
[2024-02-09] MEDS ORDERED: COLC0.6C3 MT (14:51)
[2024-02-09 15:26] VITALS: BP 158/92; PULSE 95; RESP 18
[2024-02-09] MEDS: DEXAMETHASONE 10 MG/ML VIAL IM ONE (15:26)
[2024-02-09] MEDS: KETOROLAC 15MG/ML VIAL IM ONE (15:26)
[2024-02-09] MEDS: COLCHICINE 0.6MG TABLET PO ONE (15:27)
== END 2024-02-09 15:40 | disposition home or self-care (01) ==
LOC: ER 12:14
DX: M10.9 Gout, unspecified (principal); F14.10 Cocaine abuse, uncomplicated; F12.10 Cannabis abuse, uncomplicated; F15.10 Other stimulant abuse, uncomplicated; I11.0 Hypertensive heart disease with heart failure; I50.9 Heart failure, unspecified; Z79.899 Other long term (current) drug therapy
CPT/HCPCS: 99284; 96372; J1100; J1885